=== PATIENT | female | born 2000 ===

== ENCOUNTER 2024-05-27 09:17 | Inpatient (IN) | payer OTHER ==
[2024-05-27] MEDS ORDERED: FLU VACC TS2024-25(6MOS UP)/PF 45 MCG/0.5 ML SYRINGE IM ONE (14:45)
[2024-05-27] MEDS ORDERED: Zolpidem Tartrate 5 MG Tab PO PRN (14:50)
[2024-05-27] MEDS ORDERED: INTUNIV1 MG PO (14:50)
[2024-05-27] MEDS ORDERED: OLANZapine 10 MG Vial IM PRN (14:50)
[2024-05-27] MEDS ORDERED: Ibuprofen 600 MG Tab PO PRN (14:50)
[2024-05-27] MEDS ORDERED: OLANZapine ODT 10 MG Tab MM PRN ×2 (14:50→14:55)
[2024-05-27] MEDS ORDERED: Acetaminophen 325 MG TABLET PO PRN (14:50)
[2024-05-27] MEDS ORDERED: Aluminum Hydroxide 320MG/5ML 473 ML PO PRN (14:50)
--- NOTE | 2024-05-27 17:32 | NUR ---
SHIFT SUMMARY PT ADMITTED TO THE BHU AFTER BEING TRANSFERRED FROM [facility] IN [place]. PT REPORTS THAT HE WENT TO THE ED AFTER EXPERIENCING INCREASED "MENTAL BREAKDOWNS" AND SUICIDAL IDEATION. PT SAYS THAT HIS HEALTH HAS STEADILY BEEN DECLINING AND THIS HAS LED TO INCREASED DEPRESSION AND ANXIETY. 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 HE GETS AROUND IN A WHEELCHAIR BUT IS ABLE TO DO ALL ADL'S INDEPENDENTLY. PT ALSO HAS GENDER DYSPHORIA AND USES HE/THEM PRONOUNS. HE HAS A HX OF SCHIZOAFFECTIVE DISORDER WITH BIPOLAR, DEPRESSION, ANXIETY, AND PTSD. HE CURRENTLY ENDORSES SUICIDAL THOUGHTS BUT NO PLAN. HE CURRENTLY DENIES ANY HALLUCINATIONS BUT REPORTS OLFACTORY AND TACTILE HALLUCINATIONS WHEN HE DOES HALLUCINATE. PT ORIENTED TO THE UNIT AND SHOWERED AFTER A LOT OF ENCOURAGEMENT. PT HAD NOT SHOWERED IN A WEEK PRIOR TO ARRIVAL. PT ATE DINNER AND IS CURRENTLY WATCHING TV WITH PEERS. MONITORED VIA Q15 ROUNDING FOR SAFETY.
[2024-05-27 20:37] VITALS: BP 109/74
--- NOTE | 2024-05-28 01:40 | NUR ---
PATIENT VERY TEARFUL AND ANXIOUS AT BEGIING OF SHIFT. HE REFUSES TO TRY PRN MEDICATIONS. EDUCATION DONE WITH PATIENT REGARDING DISEASE PROCESS AND MEDICATION MANAGEMENT.
--- NOTE | 2024-05-28 04:17 | NUR ---
SHIFT SUMMARY: ASSUMED CARE FROM PRIOR SHIFT. PATIENT IS A/O X4, ABLE TO VOICE NEEDS AND HAVE MEANINGFUL CONVERSATION. HE IS TEARFUL THROUGHOUT ASSESSMENT. HE IS STILL FEELING SI WITHOUT A PLAN. HE EXPRESSES DEPRESSION HE FEELS "MY OVER ALL HEALTH IS DECLINING". HE IS ANXIOUS TO SPEAK WITH THE PROVIDER TOMORROW AND HAVE A MEDICATION REVIEW HE IS CONCERNED OF "SIDE EFFECTS". HE IS COMPLIANT WITH CARE AND ASSESSMENT. HE REFUSED TO TAKE AMBIEN OR ZYPREXA. WE DID TALK AT LENGTH REGARDING MEDICATION MANAGEMENT AND DISEASE PROCESS. HE DOES EAT 80% OF HIS SNACK. HE IS ABLE TO PROPEL WIS W/C UNASSISTED WE EXPLORED THE UNIT TOGETHER. HE IS VERY ARTIICULATE AND AWARE OF HIS CURCOMSTANCES. HE HAS A THEREPY CAT AT HOME AND IS LOOKING FORWARD TO SPENDING TIME WITH HER WHEN HE RETURNS. HE GOES TO SLEEP WITH SOME ENCOURAGEMENT AND 1:1 TIME WITH NURSE. HE SLEEPS THROGH THE NIGHT WITHOUT ANY BEHAVIORS OR ISSUES. WE WILL CONTINUE TO MONITOR EVERY 15 MIN FOR SAFETY AND COMFORT.
[2024-05-28 08:12] VITALS: BP 114/77
[2024-05-28 08:41] VITALS: BP 114/77
[2024-05-28] MEDS ORDERED: Multivitamins 1 Tab PO SCH (09:00)
[2024-05-28] MEDS ORDERED: GUANFACINE 1 MG PO SCH (09:22)
[2024-05-28] MEDS ORDERED: Ondansetron 4 MG TAB PO PRN (10:10)
--- NOTE | 2024-05-28 11:18 | NUR ---
PT MOTHER CALLED, HER NAME IS MESERET, SHE GIVES HER CONTACT INFORMATION . SHE SHARES THAT PT HAS "FALLEN THROUGH THE CRACKS," WHILE ASKING FOR HELP, SHE IS HOPEFUL HE WILL GET SOME OUTPATIENT SUPPORT WITH THERAPY. SHE STATES HE CO FEELING TIRED AND OVERWHELMED, IT SOUNDS IF HE HAS BEEN UNABLE TO SCHEDULE APPOINTMENTS OR MAKE APPOINTMENTS FOR THE HELP HE HAS NEEDED. SHE STATES PT NEEDS SMALL FREQUENT MEALS, RELATED TO DELAYED GASTRIC EMPTYING.
--- NOTE | 2024-05-28 17:04 | NUR ---
Shift Summary Pt A/O x4; pleasant and cooperative with care. Pt has been fairly anxious this shift and requires a lot of reassurance. He is nervous about starting new medication and the side effects. He also reports abd pain with eating due to gastroparesis. Treated per EMR for nausea. Pt uses the sensory room often to cope with anxiety. Using the weighted blanket seems to help. Pt uses the He endorses SI with no plan but denies HI or any hallucinations. Pt to start on zyprexa tonight. Patient needs a lot of encouragement to keep up on hygiene. He uses a wheelchair to get around but is able to perform all ADL's independently.
[2024-05-28] MEDS ORDERED: GuanFACINE HCl 1 MG Tab PO SCH (21:00)
[2024-05-28] MEDS ORDERED: OLANZapine 5 MG Tab PO SCH (21:00)
[2024-05-28 22:18] VITALS: BP 127/89
--- NOTE | 2024-05-29 04:20 | NUR ---
SHIFT SUMMARY: ASSUMED CARE FROM PRIOR SHIFT. PATIENT IS UP AT BEGINNING OF SHIFT SOCIALIZING WITH OTHER PATIENTS AND STAFF. HE IS A/OX4, ABLE TO VOICE NEEDS AND HAVE MEANINGFUL CONVERSATIONS. HE IS COMPLIANT WITH CARE, ASSESSMENT AND MEDICATIONS. LENGTHY DISCUSSION REGARDING NEW MEDICATION ZYPEXA. IT CAN HELP REDUCE S/S OF BIPOLAR BY BALANCEING LEVELS OF DOPAMINE AND SEROTONIN. PATIENT IS ABLE TO VERBALIZE AN UNDERSTANDING AND IS COMPLIANT. PATIENT DID NOT DEMONSTARTE ANY SIDE EFFECTS. HE CURRENTLY DENIES SI, AH, VH AND TH. HE DOES C/O OF CONTINUED DEPRESSION AND ANXIETY. HE FEELS HE "IS IN THE RIGHT PLACE" AND GRAEFUL FOR CARE. HE GOES TO BED WITHOUT ENCOURAGEMENT. NO NOTED BEHAVIORS OR ISSUES. WE WILL CONTINUE TO MONITOR EVERY 15 MIN FOR SAFETY AND COMFORT.
--- NOTE | 2024-05-29 08:36 | NUR ---
PT LAYING IN BED, STATES HE IS STILL TRYING TO WAKE UP THIS MORNING, PT HASN'T EATEN BREAKFAST, ENCOURAGED TO GET UP AND EAT, DOOR IS OPEN AT THIS TIME, PT IS STRETCING AND REPORTS HE WILL GET UP SHORTLY.
[2024-05-29] MEDS ORDERED: GuanFACINE HCl 1 MG Tab PO SCH (09:00)
--- NOTE | 2024-05-29 18:23 | NUR ---
SHIFT SUMMARY PT A/O X4; PLEASANT AND COOPERATIVE WITH CARE. HE DENIES SI, HI, OR ANY HALLUCINATIONS. PT HAS BEEN SLEEPING MORE TODAY AND HAS SLEPT IN THE SENSORY ROOM FOR THE MAJORITY OF THE SHIFT. HIS AFFECT SEEMS TO BE MORE BLUNTED THAN IN THE PAST AND HE PARTICIPATED IN ONE GROUP TODAY. HE WISHES TO SPEAK WITH THE PRESS CATCHER TOMORROW. MONITORED VIA Q15 ROUNDS FOR SAFETY.
--- NOTE | 2024-05-29 23:41 | NUR ---
SHIFT SUMMARY () Pt is compliant with HS meds. Reports stomach discomfort but denies concerns with mood. PRN Zofran given. Pt went to bed after taking meds without issue. Requesting shower tomorrow. No other needs expressed.
[2024-05-30 01:50] VITALS: BP 104/66
--- NOTE | 2024-05-30 04:14 | NUR ---
RECEIVED PATIENT AT 2330. PATIENT WAS RESTING IN BED WITH EYES CLOSED AND RESPIRATIONS CONFIRMED, AND CONTINUES TO DO SO. PATIENT IS NOT EXPRESSING ANY NEEDS OR CONCERNS THIS SHIFT. PATIENT HAD NO S/SX SUICIDAL IDEATION OR SELF HARM NOTED THIS SHIFT. CONTINUING TO MONITOR FOR SAFETY WITH Q15 MINUTE CHECKS.
--- NOTE | 2024-05-30 17:43 | NUR ---
SHIFT ASSESSMENT: PT HAS BEEN UP SINCE [facility] AND HAS BEEN A&Ox4 ALL DAY, COOPERATIVE AND PARTICIPATING IN GROUPS AND THE MILIUE, COOPERATIVE WITH OTHER PTS. THIS RN TOLD PT THEY WOULD BE SHOWERING TODAY AND THAT THIS RN WOULD BE IN THE [place] BATH/SHOWER ROOM WITH THE PT TO ENSURE SAFETY R/T TO RISK OF SHOWER CHAIR BEING IN THE ROOM. INITIALLY PT WAS CONCERNED THIS RN WOULD BE STARING AT THEM, ASSURED PT I WOULD NOT BE STARING. JUST THAT STAFF PRESENCE IS NEEDED TO BE THERE FOR SAFETY, PT RELAXED AND TOOK A GOOD SHOWER AND STATED FEELING MUCH BETTER AFTERWARD. PT SHARED DURING THEIR SHOWER THAT THEY LIVE ALONE IN AN APARTMENT AND HAS A FEW SUPPORT FRIENDS/FAMILY. AT DINNER TIME TONIGHT, PT DENIES HI/SI/AVH
--- NOTE | 2024-05-30 17:44 | NUR ---
Pt Release of Information Provided Patient an RUDDY per SW request to ensure SW can speak with patients providers at [facility]. Let Patient know to return to staff midwife/apprenticeship director so that it can be sent over to his providers to ensure SW has clearance to communicate. Will update tomorrow when faxed/completed.
[2024-05-30 21:38] VITALS: BP 110/66
--- NOTE | 2024-05-31 04:36 | NUR ---
Patient is very pleasant and cooperative with care. He is alert and oriented times 4. He spent all of the evening in the milieu conversing with his peers and staff. Denies SI,HI and AVTH on assessment. Sleeping well at this time. Will continue close monitoring every 15 minutes for safety.
[2024-05-31 07:59] VITALS: BP 100/68
--- NOTE | 2024-05-31 12:04 | NUR ---
"Spiritual Care Consult | Pt. Request Meet with Pt. in a visitor room. Pt. welcomes my visit and confirms that I am a information services tech. Pt. displays evidence of some anxiety about sharing their sexual identity. This mitochondrial disorders counselor paused the conversation to affirm what pronouns the Pt. preferred. He verbalized gratitude for asking, then affirmed that it was He/They. Considered matters of dhavla and belief. Listened with empathy and pastoral compassion. Pt. verbalized that she was feeling pain, but requested that I come see him again. Pt. verbalized gratitude for the spiritual care visit."
[2024-05-31] MEDS ORDERED: Polyethylene Glycol 3350 17 gm PO PRN (14:05)
--- NOTE | 2024-05-31 17:30 | NUR ---
SHIFT SUMMARY PT A/O X4; PLEASANT COOPERATIVE WITH CARE. PT SEEMS TO BE IN GOOD SPIRITS AND DOING BETTER. HE DENIES SI, HI, OR ANY HALLUCINATIONS. HE SHOWERED TODAY AND ATTENDED ALL GROUPS AND MEALS. NUTRITION ENCOURAGED AND ENSURES PROVIDED. HE CONTINUES TO BE MONITORED VIA Q15 ROUNDING FOR SAFETY.
[2024-05-31 20:40] VITALS: BP 113/74
--- NOTE | 2024-06-01 03:10 | NUR ---
SHIFT SUMMARY: ASSUMED CARE FROM PRIOR SHIFT. PATIENT IS A/OX4, ABLE TO VOICE NEEDS AND HAVE MEANINGFUL CONVERSATION. HE IS COMPLIANT WITH : CARE, ASSESSMENT AND MEDICATIONS. HE DENIES ANY SI, VH, AH AND TH. HE IS ENGAGED WITH ACTIVITES. HE GOES TO SLEEP WITHOUT ENCOURAGEMENT. NO NOTED ISSUES OR BEHAVIORS. WE WILL CONTINUE TO MONITOR FOR SAFETY AND COMFORT EVERY 15 MIN.
--- NOTE | 2024-06-01 08:30 | NUR ---
AM ASSESSMENT PT PLEASANT AND COOPERATIVE THIS MORNING. PT REPORTING FEELING GREAT AND REQUESTED TO DISCHARGE HOME TOMORROW INSTEAD OF TODAY. PT REPORTS REQUEST FOR ONE MORE DAY OF STABILIZATION BEFORE DISCHARGING WITH NEW MEDS. PT INFORMS BETTER RELATIONSHIP WITH MOM THAT HAS BEEN STRUGGLING FOR AWHILE AND GREATFUL FOR THAT. PT UP FOR BREAKFAST AND PRTICIPATING IN GROUPS W/ PEERS AND STAFF. FOLLOWING GROUP PT TO SENSORY ROOM AND RESTING QUIETLY ON DANIELS BAG. NO ACUTE CHANGES AT THIS TIME. WILL CONTINUE TO MONITOR AND PROVIDE SUPPORT NECESSARY.
[2024-06-01 08:45] VITALS: BP 108/71
--- NOTE | 2024-06-01 13:46 | NUR ---
[facility], [facility] CONTACTED AND HAVE REQUESTED RIDE FOR PT TOMORROW AT NOON. THEY WILL CALL BACK WITH CONFIRMATION, IF NEEDED THEIR CONTACT NUMBER IS #[phone] OR #[phone].
[2024-06-01 20:57] VITALS: BP 112/74
--- NOTE | 2024-06-02 03:27 | NUR ---
SHIFT SUMMARY: ASSUMED CARE FROM PRIOR SHIFT. PATIENT IS A/OX4, ABLE TO VOICE NEEDS AND HAVE MEANINGFUL CONVERSATION. PATIENT HAS DONE VERY WELL IN THE BHU. HE HAS BEEN COMPLIANT WITH POC, MEDICATIONS AND CARE. HE CURRENTLY DENIES SI, VH, AH AND VH. [facility] IS VERY EXCITED TO BE DISCHARGED LATER TODAY. HE TELLS ME "THIS IS THE BEST PLACE I HAVE EVER BEEN FOR MENTAL HEALTH TREATMENT". HE FEELS IMPROVED AND READY TO GO HOME. WE WILL CONTINUE TO MONITOR EVERY 15 MIN FOR SAFETY AND COMFORT.
--- NOTE | 2024-06-02 05:33 | NUR ---
PATIENT CONTINUES TO SLEEP THROUGH THE NIGHT. NO NOTED ISSUES OR BEHAVIORS.
[2024-06-02 08:09] VITALS: BP 107/72
--- NOTE | 2024-06-02 09:09 | NUR ---
AM ASSESSMENT PT PLEASANT AND COOPERATIVE THIS MORNING, PT REPORTS LOOKING FORWARD TO DISCHARGE TODAY. PT DECLINES SHOWER AND STATES WILL TAKE ONE WHEN HE GETS HOME. WILL CONTINUE TO MONITOR AND PROVIDE SUPPORT NECESSARY
[2024-06-02] MEDS ORDERED: OLAN5 PO (11:44)
--- NOTE | 2024-06-02 12:25 | NUR ---
DISCHARGE PT DISCHARGED. PROVIDED WITH F/U APPTS, EDUATION, AND PERSONAL BELONGINGS RETURNED. PT REPORTS NERVOUS ABOUT DISCHARGE, PROVIDED SUPPORT AND ENCOURAGEMENT. PT ESCORTED TO [facility] BY THIS NURSE.
== END 2024-06-02 12:15 | disposition home or self-care (01) | DRG 885 ==
LOC: BHU 09:17
PROVIDERS: ADMIT Student in an Organized Health Care Education/Training Program
DX: F31.62 Bipolar disorder, current episode mixed, moderate (principal); R45.851 Suicidal ideations; Q79.60 Ehlers-Danlos syndrome, unspecified; F60.3 Borderline personality disorder; F41.0 Panic disorder [episodic paroxysmal anxiety]; Z56.0 Unemployment, unspecified; Z79.899 Other long term (current) drug therapy
CPT/HCPCS: A9270